=== PATIENT | female | born 1995 | race Caucasian/White ===

== ENCOUNTER 2017-07-12 18:36 | Emergency (ER) | payer BC ==
[~2017-07-12] VITALS: Ht 154.9 cm; Wt 51.2 kg
[2017-07-12 18:43] VITALS: TEMP 37.2; Ht 154.9 cm; Wt 51.2 kg
[2017-07-12 19:21] LABS: BASO % 0.2 %; BASO ABS # 0.02 K/uL (0-0.2); EOS % 0.6 %; EOS ABS # 0.05 K/uL (0-0.5); HEMATOCRIT 41.4 % (37-47); HEMOGLOBIN 14.3 g/dL (12.0-16.0); IG# 0.03 K/uL (0.00-0.02); LYMPH ABS # 2.84 K/uL (1.2-3.4); MEAN CELL VOLUME 88.7 fL (80-100); MEAN CORPUSCULAR HEMOGLOBIN 30.6 pg (25-34); MEAN CORPUSCULAR HGB CONC 34.5 g/dl (32-36); MEAN PLATELET VOLUME 9.9 fL (7.4-10.4); MONO % 6.9 %; MONO ABS # 0.61 K/uL (0.11-0.59); NEUT ABS # 5.32 K/uL (1.4-6.5); PLATELET COUNT 301 K/uL (130-400); RED CELL DISTRIBUTION WIDTH CV 12.7 % (11.5-14.5); RED CELL DISTRIBUTION WIDTH SD 40.6 fL (36.4-46.3); WHITE BLOOD COUNT 8.87 K/uL (4.8-10.8)
[2017-07-12 19:31] LABS: ALBUMIN 4.2 gm/dl (3.4-5.0); CALCIUM 9.1 mg/dl (8.5-10.1); CREATININE 0.87 mg/dl (0.60-1.20); POTASSIUM 3.7 mmol/L (3.5-5.1)
[2017-07-12 19:42] LABS: TOTAL PROTEIN 8.2 gm/dl (6.4-8.2)
--- NOTE | 2017-07-12 19:50 | EMERGENCY ROOM VISIT NOTE ---
History Report prepared by Aye: Jeanne Wheatley Under the Supervision of: Dr. Slava Concepcion M.D. First contact with patient: 18:48 Chief Complaint: MENTAL HEALTH EVALUATION Stated Complaint: DEPRESSION History of Present Illness The patient is a 22 year old female who presents to the Emergency Room for a mental health evaluation secondary to worsening suicidal ideations. The patient states that she has been seeing her psychiatrist lately, noting that she has been researching ways to kill herself. The patient was previously on a safety plan, but it has been difficult for her to carry through with it because her parents are unaware of her mental health status. She notes that only her roommate is aware of her suicidal ideations. The patient is prescribed Trazodone and Zoloft. She notes that she has been eating okay and that her last menstrual period began one week ago. The patient did not want us to contact her parents. Source of History: patient Onset: ongoing Position: other (mental) Quality: other (suicidal ideations) Timing: worsening Review of Systems See HPI for pertinent positives & negatives. A total of 10 systems reviewed and were otherwise negative. Past Medical & Surgical Medical Problems: (1) No Known Active Medical Problems Family History Patient reports no known family medical history. Social History Smoking Status: Never Smoker Smokeless Tobacco Use: No Alcohol Use: occasionally Drug Use: none Marital Status: single Housing Status: lives with roommate Occupation Status: student Current/Historical Medications Scheduled Amphetamine-Dextroamphetamine 20MG (Adderall Xr 20MG), 20 MG PO DAILY Sertraline Hcl (Zoloft), 1 TAB PO DAILY Trazodone Hcl (Trazodone), 25 MG PO HS Allergies Coded Allergies: Shellfish (Verified Allergy, Severe, HIVES, 07/12/17) Physical Exam Vital Signs Date Time Temp Pulse Resp B/P (MAP) Pulse Ox O2 Delivery O2 Flow Rate FiO2 07/13/17 02:06 78 20 128/70 98 07/12/17 23:24 86 20 118/70 98 Room Air 07/12/17 20:31 68 18 104/69 99 Room Air 07/12/17 18:43 37.2 88 18 107/67 98 Room Air Physical Exam GENERAL: Patient is a healthy-appearing well-nourished female. Tearful on exam. Admits to suicide plan and suicidal ideations. HEAD: Normocephalic atraumatic EYES: Ocular movements intact pupils equal and react to light OROPHARYNX mucous membranes are moist no exudates present no erythema or edema present NECK: Supple no nuchal rigidity CHEST: Good equal expansion LUNGS: Clear and equal to auscultation CARDIAC: Normal S1 and S2 ABDOMEN: Soft nontender no guarding BACK: No CVA tenderness EXTREMITIES: No pain upon palpation normal muscle strength in all groups no clubbing cyanosis or edema NEURO: Patient is following commands and answering questions appropriately. Alert and oriented x3 Cranial Nerves 2-12 grossly intact Medical Decision & Procedures Laboratory Results 07/12/17 19:01 Red Blood Count 4.67, Mean Corpuscular Volume 88.7, Mean Corpuscular Hemoglobin 30.6, Mean Corpuscular Hemoglobin Concent 34.5, Mean Platelet Volume 9.9, Neutrophils (%) (Auto) 60.0, Lymphocytes (%) (Auto) 32.0, Monocytes (%) (Auto) 6.9, Eosinophils (%) (Auto) 0.6, Basophils (%) (Auto) 0.2, Neutrophils # (Auto) 5.32, Lymphocytes # (Auto) 2.84, Monocytes # (Auto) 0.61, Eosinophils # (Auto) 0.05, Basophils # (Auto) 0.02 07/12/17 19:01 Test 07/12/17 19:01 07/12/17 19:20 White Blood Count 8.87 K/uL (4.8-10.8) Red Blood Count 4.67 M/uL (4.2-5.4) Hemoglobin 14.3 g/dL (12.0-16.0) Hematocrit 41.4 % (37-47) Mean Corpuscular Volume 88.7 fL (80-100) Mean Corpuscular Hemoglobin 30.6 pg (25-34) Mean Corpuscular Hemoglobin Concent 34.5 g/dl (32-36) Platelet Count 301 K/uL (130-400) Mean Platelet Volume 9.9 fL (7.4-10.4) Neutrophils (%) (Auto) 60.0 % Lymphocytes (%) (Auto) 32.0 % Monocytes (%) (Auto) 6.9 % Eosinophils (%) (Auto) 0.6 % Basophils (%) (Auto) 0.2 % Neutrophils # (Auto) 5.32 K/uL (1.4-6.5) Lymphocytes # (Auto) 2.84 K/uL (1.2-3.4) Monocytes # (Auto) 0.61 K/uL (0.11-0.59) Eosinophils # (Auto) 0.05 K/uL (0-0.5) Basophils # (Auto) 0.02 K/uL (0-0.2) RDW Standard Deviation 40.6 fL (36.4-46.3) RDW Coefficient of Variation 12.7 % (11.5-14.5) Immature Granulocyte % (Auto) 0.3 % Immature Granulocyte # (Auto) 0.03 K/uL (0.00-0.02) Anion Gap 7.0 mmol/L (3-11) Est Creatinine Clear Calc Drug Dose 77.8 ml/min Estimated GFR () 111.1 Estimated GFR (Non- 95.9 BUN/Creatinine Ratio 16.4 (10-20) Calcium Level 9.1 mg/dl (8.5-10.1) Total Bilirubin 0.8 mg/dl (0.2-1) Direct Bilirubin 0.2 mg/dl (0-0.2) Aspartate Amino Transf (AST/SGOT) 14 U/L (15-37) Alanine Aminotransferase (ALT/SGPT) 18 U/L (12-78) Alkaline Phosphatase 86 U/L (45-117) Total Protein 8.2 gm/dl (6.4-8.2) Albumin 4.2 gm/dl (3.4-5.0) Thyroid Stimulating Hormone (TSH) 1.440 uIu/ml (0.300-4.500) Ethyl Alcohol mg/dL < 3.0 mg/dl (0-3) Urine Color YELLOW Urine Appearance CLEAR (CLEAR) Urine pH 5.5 (4.5-7.5) Urine Specific [place] 1.029 (1.000-1.030) Urine Protein NEG (NEG) Urine Glucose (UA) NEG (NEG) Urine Ketones 1+ (NEG) Urine Occult Blood NEG (NEG) Urine Nitrite NEG (NEG) Urine Bilirubin NEG (NEG) Urine Urobilinogen NEG (NEG) Urine Leukocyte Esterase NEG (NEG) Urine Test NEG (NEG) Urine Opiates Screen NEG (NEG) Urine Methadone, Qualitative NEG (NEG) Urine Barbiturates NEG (NEG) Urine Phencyclidine (PCP) Level NEG (NEG) Ur Amphetamine/Methamphetamine POS (NEG) MDMA (Ecstasy) Screen POS (NEG) Urine Benzodiazepines Screen NEG (NEG) Urine Cocaine Metabolite NEG (NEG) Urine Marijuana (THC) NEG (NEG) Labs reviewed by ED physician. ED Course 1850: Past medical records reviewed. The patient was evaluated in room A6. A complete history and physical examination was performed. 2242: Ordered Sertraline HCL 100mg PO. 2306: Ordered Desyrel Tab 25mg PO. Medical Decision Differential diagnosis: Etiologies such as mood disorder, infection, hypoglycemia, electrolyte abnormalities, cardiac sources, intracerebral event, toxicologic, neurologic, as well as others were entertained. This is a 22-year-old female who presents emergency Department with mood disorder. I recommended that we discussed this patient's case with her parents however she is adamantly refusing. She was given her evening medications. She was medically cleared by me and evaluated by mental health. Patient was accepted to [facility] and was transferred without incident. Medication Reconcilliation Current Medication List: was personally reviewed by me Impression Primary Impression: Mood disorder Scribe Attestation The scribe's documentation has been prepared under my direction and personally reviewed by me in its entirety. I confirm that the note above accurately reflects all work, treatment, procedures, and medical decision making performed by me. Departure Information Dispostion Mental Health Acute Care Referrals No Doctor, Assigned (PCP) Forms HOME CARE DOCUMENTATION FORM, IMPORTANT VISIT INFORMATION Patient Instructions My [facility]
[2017-07-12] MEDS ORDERED: TRAZ50TA35 PO (21:16)
[2017-07-12] MEDS ORDERED: SERT1TAB72 PO (21:16)
[2017-07-12] MEDS ORDERED: AMPH20CA3 PO (21:16)
[2017-07-12] MEDS ORDERED: SERTRALINE HCL 100 MG TAB PO STA (22:43)
[2017-07-12] MEDS ORDERED: TRAZODONE HCL 50 MG TAB PO STA (23:07)
[2017-07-13 02:06] VITALS: BP 128/70; PULSE 78; O2SAT 98
== END 2017-07-13 02:07 ==
LOC: C.EDB 18:38 → EDBD 18:38 → C.EDA 07-13 02:07
DX: Z00.8 Encounter for other general examination (principal); F32.9 Major depressive disorder, single episode, unspecified; R45.851 Suicidal ideations

== ENCOUNTER 2017-09-30 02:35 | Emergency (ER) | payer BC ==
[~2017-09-30] VITALS: Ht 154.9 cm; Wt 50.3 kg
[~2017-09-30 02:35] MED LIST: AMPH20CA3 PO; SERT1TAB72 PO; TRAZ50TA35 PO
[2017-09-30 02:40] VITALS: TEMP 36.7; Ht 154.9 cm; Wt 50.3 kg
[2017-09-30] MEDS ORDERED: ONDANSETRON INJ 2 MG/ML 2 ML VIAL IV STA (02:57)
[2017-09-30] MEDS ORDERED: SODIUM CHLORIDE 0.9% 1000ML 2,000 ML IV STA (02:57)
[2017-09-30] MEDS ORDERED: DICYCLOMINE HCL 10 MG/ML 2 ML AMP IM ONE (03:00)
[2017-09-30 03:10] LABS: HEMATOCRIT 42.2 % (37-47); HEMOGLOBIN 15.2 g/dL (12.0-16.0); MEAN CELL VOLUME 86.3 fL (80-100); MEAN CORPUSCULAR HEMOGLOBIN 31.1 pg (25-34); MEAN PLATELET VOLUME 10.2 fL (7.4-10.4); PLATELET COUNT 238 K/uL (130-400); RED CELL DISTRIBUTION WIDTH CV 12.5 % (11.5-14.5); RED CELL DISTRIBUTION WIDTH SD 40.1 fL (36.4-46.3); WHITE BLOOD COUNT 15.06 K/uL (4.8-10.8)
[2017-09-30] MEDS ORDERED: ESCI1TAB10 PO (03:10)
[2017-09-30 03:38] LABS: ALBUMIN 4.3 gm/dl (3.4-5.0); CALCIUM 9.2 mg/dl (8.5-10.1)
[2017-09-30 03:40] LABS: BASO % 0.1 %; BASO ABS # 0.02 K/uL (0-0.2); EOS % 0.1 %; EOS ABS # 0.01 K/uL (0-0.5); IG# 0.04 K/uL (0.00-0.02); MONO % 6.7 %; MONO ABS # 1.01 K/uL (0.11-0.59); NEUT % 90.8 %; NEUT ABS # 13.68 K/uL (1.4-6.5); TOTAL PROTEIN 8.2 gm/dl (6.4-8.2)
--- NOTE | 2017-09-30 04:36 | EMERGENCY ROOM VISIT NOTE ---
History First contact with patient: 02:44 Chief Complaint: VOMITING Stated Complaint: VOMITING Nursing Triage Summary: pt ate dinner at [facility]. began with N/V/D afterwards. pt unable to keep water down at home. pt lives in apartment off campus and does not eat at the campus dining halls. History of Present Illness The patient is a 22 year old female who presents to the Emergency Room with complaints of nausea, vomiting, diarrhea past few hours after eating out at the restaurant. No blood or black in the stool or emesis. No recent antibiotics. No well water. No sick contacts. Patient denies chest pain, dyspnea, fever, chills, cough, congestion, back pain, urinary symptoms. She complains of generalized abdominal cramping. Review of Systems An 10 system review of systems was completed with positives and pertinent negatives listed in the HPI. Past Medical/Surgical History Medical Problems: (1) No Known Active Medical Problems Family History Patient reports no known family medical history. Social History Smoking Status: Never Smoker Alcohol Use: occasionally Drug Use: none Marital Status: single Housing Status: lives with roommate Occupation Status: [employer] student Current/Historical Medications Scheduled Amphetamine-Dextroamphetamine 20MG (Adderall Xr 20MG), 20 MG PO DAILY Escitalopram Oxalate (Lexapro), 20 MG PO DAILY Trazodone Hcl (Trazodone), 75 MG PO HS Physical Exam Vital Signs Date Time Temp Pulse Resp B/P (MAP) Pulse Ox O2 Delivery O2 Flow Rate FiO2 09/30/17 02:40 36.7 116 20 106/68 98 Room Air Physical Exam VITALS: Vitals are noted on the nurse's note and reviewed by myself. Vital signs stable. GENERAL: pleasant female, in no acute distress, nondiaphoretic, well-developed well-nourished. SKIN: The skin was without rashes, erythema, edema, or bruising. There is no tenting of the skin. Capillary reflex less than 2 seconds. HEAD: Normocephalic atraumatic. EARS: External auditory canals clear, tympanic membranes pearly [place] without erythema or effusion bilaterally. EYES: Pupils equal round and reactive to light and accommodation. Conjunctivae without injection, sclerae without icterus. Extraocular movements intact. NOSE: Patent, turbinates without inflammation or discharge. MOUTH: Mucous membranes mildly dry. Pharynx without erythema or exudate. Uvula midline. Airway patent. Tongue does not deviate. NECK: Supple without nuchal rigidity. No lymphadenopathy. No thyromegaly. Cervical spine is nontender. No JVD. HEART: Regular rate and rhythm without murmurs gallops or rubs. LUNGS: Clear to auscultation bilaterally without wheezes, rales or rhonchi. No retractions or accessory muscle use. ABDOMEN: Positive bowel sounds x 4. Normal tympanic percussion. Soft, nontender, without masses or organomegaly. Benson sign negative. No guarding or rebound tenderness. No CVA tenderness MUSCULOSKELETAL: No muscle atrophy, erythema, or edema noted. NEURO: Patient was alert and oriented to person place and time. Normal sensation to light and sharp touch. No focal neurological deficits. Medical Decision & Procedures Laboratory Results 09/30/17 02:35 Red Blood Count 4.89, Mean Corpuscular Volume 86.3, Mean Corpuscular Hemoglobin 31.1, Mean Corpuscular Hemoglobin Concent 36.0, Mean Platelet Volume 10.2, Neutrophils (%) (Auto) 90.8, Lymphocytes (%) (Auto) 2.0, Monocytes (%) (Auto) 6.7, Eosinophils (%) (Auto) 0.1, Basophils (%) (Auto) 0.1, Neutrophils # (Auto) 13.68, Lymphocytes # (Auto) 0.30, Monocytes # (Auto) 1.01, Eosinophils # (Auto) 0.01, Basophils # (Auto) 0.02 09/30/17 02:35 Test 09/30/17 02:35 09/30/17 02:55 White Blood Count 15.06 K/uL (4.8-10.8) Red Blood Count 4.89 M/uL (4.2-5.4) Hemoglobin 15.2 g/dL (12.0-16.0) Hematocrit 42.2 % (37-47) Mean Corpuscular Volume 86.3 fL (80-100) Mean Corpuscular Hemoglobin 31.1 pg (25-34) Mean Corpuscular Hemoglobin Concent 36.0 g/dl (32-36) Platelet Count 238 K/uL (130-400) Mean Platelet Volume 10.2 fL (7.4-10.4) Neutrophils (%) (Auto) 90.8 % Lymphocytes (%) (Auto) 2.0 % Monocytes (%) (Auto) 6.7 % Eosinophils (%) (Auto) 0.1 % Basophils (%) (Auto) 0.1 % Neutrophils # (Auto) 13.68 K/uL (1.4-6.5) Lymphocytes # (Auto) 0.30 K/uL (1.2-3.4) Monocytes # (Auto) 1.01 K/uL (0.11-0.59) Eosinophils # (Auto) 0.01 K/uL (0-0.5) Basophils # (Auto) 0.02 K/uL (0-0.2) RDW Standard Deviation 40.1 fL (36.4-46.3) RDW Coefficient of Variation 12.5 % (11.5-14.5) Immature Granulocyte % (Auto) 0.3 % Immature Granulocyte # (Auto) 0.04 K/uL (0.00-0.02) Anion Gap 8.0 mmol/L (3-11) Est Creatinine Clear Calc Drug Dose 67.7 ml/min Estimated GFR () 93.9 Estimated GFR (Non- 81.0 BUN/Creatinine Ratio 21.4 (10-20) Calcium Level 9.2 mg/dl (8.5-10.1) Total Bilirubin 1.4 mg/dl (0.2-1) Direct Bilirubin 0.2 mg/dl (0-0.2) Aspartate Amino Transf (AST/SGOT) 27 U/L (15-37) Alanine Aminotransferase (ALT/SGPT) 26 U/L (12-78) Alkaline Phosphatase 106 U/L (45-117) Total Protein 8.2 gm/dl (6.4-8.2) Albumin 4.3 gm/dl (3.4-5.0) Human Chorionic Gonadotropin, Qual NEG (NEG) Medications Administered Medications (Trade) Dose Ordered Sig/Karla Route Start Time Stop Time Status Last Admin Dose Admin Sodium Chloride 2,000 ml @ 999 mls/hr Q2H1M STAT IV 09/30/17 02:57 09/30/17 04:57 09/30/17 03:04 999 MLS/HR Ondansetron HCl (Zofran Inj) 4 mg NOW STAT IV 09/30/17 02:57 09/30/17 02:59 DC 09/30/17 03:09 4 MG Dicyclomine HCl (Bentyl Inj) 20 mg NOW ONCE IM 09/30/17 03:00 09/30/17 03:01 DC 09/30/17 03:09 20 MG ED Course Prior records/ancillary studies reviewed. Triage Nursing notes reviewed. Additional history obtained from the family. The patient's history was concerning for nausea, vomiting, diarrhea, and abdominal pain. Differential diagnosis: Etiologies such as gastroenteritis, food borne illness, infections, appendicitis , diverticulitis, inflammatory bowel disease, obstruction, GI bleed, biliary pathology, as well as others were entertained. Physical examination findings: As above. Abdominal examination revealed no tenderness. Vital signs reviewed and revealed stable. ER treatment provided: IV hydration 2 L NSS. nara quinn On reassessment the patient felt better. Patient was tolerating p.o. intake. Diagnostics interpretation by me: The labs revealed leukocytosis most likely marginalization from vomiting. Hyperglycemia most likely stress-induced from viral infection Stool cultures pending This appears to be consistent with vomiting and diarrhea most likely viral in etiology. Patient did not have acute abdomen on exam. She is tolerating fluids. She felt better and requested to leave. She is advised to rest, stay well hydrated, do clear liquid diet today and progress to bland diet tomorrow. She is advised to follow-up with health services in a few days or here in the ER sooner for abdominal pain, fevers, vomiting, worsening signs or symptoms or as needed. She was informed if the stool tests are positive that she would be notified. By the evaluation outlined above emergent etiologies such as appendicitis, diverticulitis, obstruction, cardiac sources, mesenteric ischemia , aortic pathology, inflammatory bowel disease, renal colic, PUD, biliary pathology, UTI, as well as others were deemed relatively unlikely. The pt informed about the findings as listed above. All questions were answered and pleased with the treatment. Return instructions were outlined and the patient was discharged in stable condition. Outpatient prescription management: Nara Quinn Referral: The patient was referred to their primary care physician/S for follow-up in 2 to 3 days for a recheck of the current condition. Case reviewed with my attending The chart was completed utilizing [id number] voice recognition software. Grammatical errors, random word insertions, pronoun errors, and incomplete sentences are an occassional consequence of this system due to software limitations, ambient noise, and hardware issues. Any formal questions or concerns about the content, text, or information contained within the body of this dictation should be directly addressed to the physician assistant to the director for clarification. Medical Decision as above Medication Reconcilliation Current Medication List: was personally reviewed by me Blood Pressure Screening Patient's blood pressure: Normal blood pressure Impression Primary Impression: Nausea, vomiting, and diarrhea Departure Information Dispostion Home / Self-Care Condition GOOD Referrals [facility] (PCP) Patient Instructions My [facility] Additional Instructions DO NOT drive, drink alcohol, operate machinery, or perform dangerous activities today. You were given medications in the ER that can affect your ability to safely function or operate a vehicle. Bentyl tablets 10mg: Take one every six hours as needed for abdominal cramping. Avoid alcohol, operating machinery or dangerous equipment, working on ladders or roofs, DRIVING, or situations where being under the influence may be dangerous. Zofran(odansetron) tablets 4mg: Take one and allow it to dissolve in your mouth every four to six hours as needed for nausea or vomiting. Rest and drink plenty of fluids as tolerated. Slow sips of water or sports drinks are recommended instead of large amounts all at once. Continue current medications. Once your stomach is settled start with a clear liquid diet (jello, soup broth, etc.) and then advance as tolerated. You should avoid full, heavy meals for about 24 hrs from the time your symptoms resolved. Return to the ER for persistent vomiting, fevers, abdominal pain, chest pains, difficulty breathing, black or bloody stools, worsening of your condition, or as needed. Follow up with your primary physician/health services in 2-3 days for a recheck of your current condition.
[2017-09-30] MEDS ORDERED: BENTYL HOME PACK 10 MG VIAL PO ONE (04:45)
[2017-09-30] MEDS ORDERED: ONDANSETRON HOME PACK 4MG OD TAB PO ONE (04:45)
[2017-09-30 04:57] VITALS: BP 117/64; PULSE 95; O2SAT 100
== END 2017-09-30 05:06 | disposition home or self-care (01) ==
LOC: C.EDB 02:36
DX: R11.2 Nausea with vomiting, unspecified (principal); R19.7 Diarrhea, unspecified; Z79.899 Other long term (current) drug therapy

== ENCOUNTER 2018-01-18 05:29 | Emergency (ER) | payer BC ==
[~2018-01-18] VITALS: Ht 157.5 cm; Wt 51.6 kg
[~2018-01-18 05:29] MED LIST changes: +ESCI1TAB10 PO; -SERT1TAB72 PO
[2018-01-18 05:31] VITALS: TEMP 36.6; Ht 157.5 cm; Wt 51.6 kg
[2018-01-18] MEDS ORDERED: AMPH25CA PO (05:40)
--- NOTE | 2018-01-18 05:59 | EMERGENCY ROOM VISIT NOTE ---
History First contact with patient: 05:36 Chief Complaint: EAR PAIN Stated Complaint: BLOOD FROM EAR History of Present Illness The patient is a 22 year old female who presents to the Emergency Room with complaints of bleeding from left ear since last night. Patient states she is using a Q-tip and then has had bleeding since. Patient states she is very gentle with it. Patient denies headache, fevers, hearing loss, cold symptoms, facial pain or any other medical complaints. Immunizations are current. Review of Systems An 10 system review of systems was completed with positives and pertinent negatives listed in the HPI. Past Medical/Surgical History Medical Problems: (1) No Known Active Medical Problems Family History Patient reports no known family medical history. Social History Smoking Status: Never Smoker Alcohol Use: occasionally Drug Use: none Marital Status: single Housing Status: lives with roommate Occupation Status: [employer] student Current/Historical Medications Scheduled Amphetamine-Dextroamphetamine 25MG (Adderall Xr 25MG), 25 MG PO QAM Escitalopram Oxalate (Lexapro), 20 MG PO DAILY Trazodone Hcl (Trazodone), 75 MG PO HS Physical Exam Vital Signs Date Time Temp Pulse Resp B/P (MAP) Pulse Ox O2 Delivery O2 Flow Rate FiO2 8/2/18 05:31 36.6 82 18 116/75 98 Room Air Physical Exam VITALS: Vitals are noted on the nurse's note and reviewed by myself. Vital signs stable. GENERAL: Pleasant female, in no acute distress, nondiaphoretic, well-developed well-nourished. SKIN: The skin was without rashes, erythema, edema, or bruising. There is no tenting of the skin. Capillary reflex less than 2 seconds. HEAD: Normocephalic atraumatic. EARS: Right external auditory canals clear, tympanic membranes pearly [place] without erythema or effusion bilaterally. Left ear canal full of blood unable to visualize the tympanic membrane. No tragus tenderness. No edema. EYES: Pupils equal round and reactive to light and accommodation. Conjunctivae without injection, sclerae without icterus. Extraocular movements intact. NOSE: Patent, turbinates without inflammation or discharge. No sinus tenderness. MOUTH: Mucous membranes moist. Pharynx without erythema or exudate. Uvula midline. Airway patent. Tongue does not deviate. NECK: Supple without nuchal rigidity. No lymphadenopathy. No thyromegaly. Cervical spine is nontender. No JVD. HEART: Regular rate and rhythm without murmurs gallops or rubs. LUNGS: Clear to auscultation bilaterally without wheezes, rales or rhonchi. No retractions or accessory muscle use. MUSCULOSKELETAL: No muscle atrophy, erythema, or edema noted. NEURO: Patient was alert and oriented to person place and time. Normal sensation to light and sharp touch. No focal neurological deficits. Medical Decision & Procedures ED Course Prior records reviewed and summarized as above. Triage Nursing notes reviewed. The patient's history was concerning for bleeding from left ear canal. Differential diagnosis: Etiologies such as ear canal abrasion, ruptured tympanic membrane, laceration, foreign body as well as others were entertained.. Physical examination: As above ER treatment provided: Ear irrigation by nursing Ear wick was placed and bleeding was controlled. On reassessment the patient felt better. Diagnostics interpreted by me: Deferred Repeat visualization after irrigation shows intact tympanic membrane. Superficial abrasion to the ear canal. Ear wick was placed. No further bleeding was visualized. The wick was not soaked through. Patient was informed to have this removed tomorrow by her family doctor in [place]. This appears to be ear canal abrasion from using a Q-tip. Earwick was placed and hemostasis was achieved. Patient was watched for a while with no further bleeding. Patient was advised not to put things in her ear. Patient was advised to leave the wick in the ear until she follows up tomorrow with her family doctor in [place]. She is advised she can call to see ENT for follow- up also. She is advised to return to the ER immediately for bleeding, pain, worsening signs or symptoms or as needed. The tympanic membrane was intact. No other injuries are noted. By the evaluation outlined above emergent etiologies such as ruptured tympanic membrane, foreign body, as well as others were deemed relatively unlikely. The pt informed about the findings as listed above. All questions were answered and pleased with the treatment. Return instructions were outlined and the patient was discharged in stable condition. Referral: The patient was referred back to ENT and/or primary care physician for follow- up in 1-2 days for a recheck of the current condition. The chart was completed utilizing [employer] voice recognition software. Grammatical errors, random word insertions, pronoun errors, and incomplete sentences are an occassional consequence of this system due to software limitations, ambient noise, and hardware issues. Any formal questions or concerns about the content, text, or information contained within the body of this dictation should be directly addressed to the physician assistant hairstylist for clarification. Medical Decision As above Medication Reconcilliation Current Medication List: was personally reviewed by me Blood Pressure Screening Patient's blood pressure: Normal blood pressure Impression Primary Impression: Abrasion of left ear canal Departure Information Dispostion Home / Self-Care Condition GOOD Referrals [facility] (PCP) Patient Instructions My [facility] Additional Instructions Leave ear wick in place until tomorrow and then remove it by the family care doctor. Avoid putting things in your ear, i.e. Q-tips. Ibuprofen(Motrin, Advil) may be used for fever or pain. Use 400mg every six hours as needed. Take with food. Avoid using more than 1600mg in a 24 hour period. Do not use 1600mg per day for more than three consecutive days without physician direction. Prolonged inappropriate use can lead to stomach upset or ulcers. (AND/OR) Acetaminophen(Tylenol) may be used for fever or pain. Use 1000mg every six hours as needed. Avoid using more than 3000mg in a 24 hour period. Rest and drink plenty of fluids as tolerated. Continue current medications. Avoid strenuous activities and anything that worsens your pain. Resume normal activities once your symptoms resolve. Return to the ER immediately for worsening or persistent ear bleeding, pain, vomiting, fevers, chest pains, difficulty breathing, worsening of your condition , or as needed. Follow up with your primary physician/ENT in 1-2 days for a recheck of your current condition.
[2018-01-18 06:20] VITALS: BP 122/71; PULSE 78; O2SAT 98
== END 2018-01-18 06:20 | disposition home or self-care (01) ==
LOC: C.EDB 05:30 → C.EDA 06:20
DX: S00.412A Abrasion of left ear, initial encounter (principal); W45.8XXA Other foreign body or object entering through skin, initial encounter